=== PATIENT | male | born 1980 | race African-American/Black ===

== ENCOUNTER 2021-05-20 21:01 | Emergency (ER) | payer SELFPAY ==
[~2021-05-20] VITALS: Ht 175.3 cm; Wt 68.2 kg
[2021-05-20] MEDS ORDERED: KETOROLAC 60 MG/2 ML VIAL. IM ONE (21:15)
--- NOTE | 2021-05-20 21:22 | PHYS DOC ---
Past History Past Medical History: No Pertinent History Past Medical History Patient reports a history of chronic cervicalgia and "I had neck surgery" in [place] he says Additional Past Surgical Histo: Patient reports a history of cervical disc surgery in [place] but is dave Alcohol Use: Occasionally Drug Use: None General Adult EDM: Chief Complaint: EtOH use, fell down stairs HPI: HPI: 40-year-old male says he was with his uncle and they were drinking alcohol, he says that he lost his footing and fell down some stairs, unclear of how many stairs he fell down, the patient is intoxicated and unable to provide a detailed history although he says he hit his neck, head, back, hip and right ankle. Denies any loss of conscious, denies any nausea, vomiting, no chest or abdominal pain, denies any blurred vision or vision loss, no focal numbness weakness/tingling of face, arms or legs. No loss of bowel or bladder control. He denies having any medical history and did not take any prescription medications Review of Systems: Review of Systems: Constitutional: Denies fever or chills Eyes: Denies change in visual acuity HENT: Denies nasal congestion or sore throat Respiratory: Denies cough or shortness of breath Cardiovascular: Denies chest pain or edema GI: Denies abdominal pain, nausea, vomiting, bloody stools or diarrhea : Denies dysuria Musculoskeletal: Denies back pain or joint pain Integument: Denies rash Neurologic: Denies headache, focal weakness or sensory changes Endocrine: Denies polyuria or polydipsia Lymphatic: Denies swollen glands Psychiatric: Denies depression or anxiety Current Medications: Current Meds: Current Medications Medications (Trade) Dose Ordered Sig/Waqar Start Time Stop Time Status Last Admin Dose Admin Ketorolac Tromethamine (Toradol Im) 30 mg 1X ONCE 05/20/21 21:15 05/20/21 21:16 UNV Allergies: Allergies: Allergies Coded Allergies Type Severity Reaction Last Updated Verified No Known Drug Allergies 05/20/21 No Physical Exam: PE: Gen-well appearing, no acute distress Head: Normocephalic/Atraumatic ENT: atraumatic, PERRLA, EOMI, oropharynx clear Neck: s there is a cervical collar in place, there is no midline cervical spinal tenderness, no JVD, no external signs of trauma Lungs: no distress, speaks in full sentences, Clear to auscultation bilaterally CV: reg rate, rhythm, no murmus/rubs/gallops, peripheral pulses equal in all extremities Abdomen: soft/nontender, no guarding/rebound tenderness, no rigidity, non di stended, normoactive bowel sounds Musculoskeletal: full ROM/strength in all extremities, atraumatic, no swelling Back: There is mild paravertebral soft tissue tenderness in the right lumbar area, no midline T, L, S spinal tenderness normal external appearance, no external signs of trauma, Skin: intact, no rashes Lymph: no gross PATSY Neuro: Patient is intoxicated however he is alert and oriented x3, there are no acute focal neurologic deficits or abnormal movements EKG: EKG: [] Twelve-lead EKG was performed at 10:18 PM, normal sinus rhythm, rate is 82, normal and nonischemic appearing EKG with normal axis and intervals Radiology/Procedures: Radiology/Procedures: [] Heart Score: C/O Chest Pain: No Risk Factors: Risk Factors: DM, Current or recent (<one month) smoker, HTN, HLP, family history of CAD, obesity. Risk Scores: Score 0 - 3: 2.5% MACE over next 6 weeks - Discharge Home Score 4 - 6: 20.3% MACE over next 6 weeks - Admit for Clinical Observation Score 7 - 10: 72.7% MACE over next 6 weeks - Early Invasive Strategies Course & Med Decision Making: Course & Med Decision Making Pertinent Labs and Imaging studies reviewed. (See chart for details) [] 40-year-old otherwise healthy male presents to the emergency department complaining of head, neck, back, right hip and right ankle pain after a fall in the setting of alcohol use, the patient is in a cervical collar on arrival, will maintain cervical spine immobilization until he can be cleared clinically, as for the other somatic plaints will also ambulate, will treat his pain, closely monitor, reevaluate exam this patient is the work-up to determine the best course of action is a data becomes available Reevaluation at 11:30 PM patient is feeling better, CTs were negative for any acute fracture did comment about a possible T2 endplate deformity patient has prior history of fracture and has no tenderness in that area, I did clear his C- spine clinically and he has full range of motion and strength that any pain or n eurologic symptoms, I believe he stable for discharge at this time Patient was seen in the ED for mechanical fall complaining of multiple somatic complaints, neck pain, back pain, hip pain and the imaging was negative, the patient clinically improved, there is no apparent evidence of any emergency medical pathology at this time, patient was advised follow-up with their primary care provider /physician in the next 24-48 hours and to return to the ED before then if any new or worsening / concerning symptoms had developed. All questions and concerns were addressed at time of disposition Dragon Disclaimer: Dragon Disclaimer: This electronic medical record was generated, in whole or in part, using a voice recognition dictation system. Departure Departure: Impression: Primary Impression: Fall down stairs Qualified Codes: W10.8XXA - Fall (on) (from) other stairs and steps, initial encounter Additional Impressions: Neck strain Qualified Codes: S16.1XXA - Strain of muscle, fascia and tendon at neck level, initial encounter Closed head injury Qualified Codes: S09.90XA - Unspecified injury of head, initial encounter Disposition: HOME / SELF CARE / HOMELESS Condition: IMPROVED Referrals: PCP,HUSSEIN (PCP) LOS GUTIERREZ MD Patient Instructions: Cervical Sprain, Head Injury, Adult Additional Instructions: The good news is your scans were okay, nothing broken, please be very careful when drinking alcohol do not drink to excess, want you to follow-up with a primary care doctor in the next 48 hours and I am referring you to Dr. Gutierrez, return to the emergency room before then if any new or worsening/concerning symptoms develop Scripts Naproxen Sodium (ANAPROX DS) 550 Mg Tablet 550 MG PO BID PRN for PAIN, #20 TAB Prov: JAIMEE MEJIA MD 05/20/21 JAIMEE MEJIA MD May 20, 2021 21:22
[2021-05-20 22:35] LABS: BASO % 1 % (0-3); EOS # 0.1 x10^3/uL (0.0-0.7); EOS % 2 % (0-3); HEMATOCRIT 39.3 % (39.0-53.0); HEMOGLOBIN 12.9 g/dL (13.0-17.5); LYMPH # 3.1 x10^3/uL (1.0-4.8); LYMPH % 43 % (24-48); MEAN CORPUSCULAR HEMOGLOBIN 33 pg (25-35); MEAN CORPUSCULAR HGB CONC 33 g/dL (31-37); MEAN CORPUSCULAR VOLUME 100 fL (79-100); MONO # 0.7 x10^3/uL (0.0-1.1); MONO % 10 % (0-9); NEUT # 3.3 x10^3uL (1.8-7.7); NEUT % 45 % (31-73); PLATELET COUNT 315 x10^3/uL (140-400); RED BLOOD COUNT 3.93 x10^6/uL (4.30-5.70); WHITE BLOOD COUNT 7.3 x10^3/uL (4.0-11.0)
[2021-05-20 22:45] LABS: CALCIUM 8.3 mg/dL (8.5-10.1); CREATININE 0.9 mg/dL (0.7-1.3); GFR 94.4; POTASSIUM 3.9 mmol/L (3.5-5.1)
[2021-05-20 22:51] LABS: ALBUMIN 3.1 g/dL (3.4-5.0); ALBUMIN/GLOBULIN RATIO 0.8 (1.0-1.7); TOTAL BILIRUBIN 0.2 mg/dL (0.2-1.0); TOTAL PROTEIN 6.9 g/dL (6.4-8.2)
--- NOTE | 2021-05-20 22:57 | EKG ---
[address] [address] Test Date: 2021-05-20 Test Time: 22:18:27 Pat Name: MAK WYMAN Department: Room: Gender: M Perioperative Assistant: : 1980 Requested By: JAIMEE MEJIA Order Number: [id number] Reading MD: Measurements Intervals [place] Rate: 92 P: 66 RI: 136 QRS: 59 QRSD: 86 T: 52 QT: 350 QTc: 438 Interpretive Statements SINUS RHYTHM NORMAL ECG RI6.02 Compared to ECG 05/20/2021 22:16:36 No significant changes
--- NOTE | 2021-05-20 22:59 | RAD ---
INDICATION: Reason: fell down the stairs / Spl. Instructions: / History: COMPARISON: None. TECHNIQUE: Axial CT images obtained through the head and cervical spine without intravenous contrast. Coronal a nd sagittal reformats processed of cervical spine. One or more of the following individualized dose reduction techniques were utilized for this examinat ion: 1. Automated exposure control; 2. Adjustment of the mA and/or kV according to patient size; 3 . Use of iterative reconstruction technique. FINDINGS: Head: No intracranial hemorrhage. No midline shift. Basal cisterns patents. Ventricles and sulci are within normal limits. No acute osseous abnormality. Orbits and paranasal sinuses unremarkable. Cervical: Anterior spinal fusion changes with plate and screws at C6-7. There is some degenerative changes of the cervical spine with disc protrusions as well as osteophyte formation at the vertebral body endplates with uncovertebral and facet hypertrophy. This contributes to central canal and neural foraminal stenosis. No evidence of dislocation. A definite acute fracture line is not seen. Mild bowing of the superior endplate of T2 vertebral body. There is some cystic changes at the partially visualized lung apices.. IMPRESSION: * No acute intracranial hemorrhage. * No acute fracture or dislocation of the cervical spine. * Degenerative changes of the cervical spine with disc protrusions and osteophyte formation as well as uncovertebral and facet hypertrophy with associated central canal and neural foraminal stenosis. T here is also postoperative changes status post anterior fusion at C6-7. * Cystic changes at the lung apices. * Mild superior endplate loss of height at T2 of unknown age. Electronically signed by: Yoel Landa MD (05/20/2021 10:56 PM) [id number]
--- NOTE | 2021-05-20 23:04 | RAD ---
XR SHOULDER_RIGHT 2+ VIEWS History: Reason: fell / Spl. Instructions: / History: . Pain Technique: 3 views right shoulder Comparison: None. Findings: Normal alignment. No fracture. Impression: 1. No acute osseous abnormality. Electronically signed by: Rafiq Razo DO (05/20/2021 11:02 PM) [facility]
--- NOTE | 2021-05-20 23:05 | RAD ---
XR LUMBAR SPINE 2-3V History: Reason: fell / Spl. Instructions: / History: . Pain Technique: 3 views lumbar spine. Comparison: None. Findings: Normal vertebral body height and alignment. No acute fracture. Mild degenerative disc changes most pr ominent L5-S1. Mild facet arthropathy. Impression: 1. No acute osseous abnormality. Electronically signed by: Rafiq Razo DO (05/20/2021 11:03 PM) [facility]
--- NOTE | 2021-05-20 23:06 | RAD ---
XR EXAM OF ANKLE_RIGHT 3VIEWS History: Reason: fell / Spl. Instructions: / History: . Pain Technique: 3 views right ankle Comparison: None. Findings: No dislocation. Symmetric ankle mortise. No acute fracture. Impression: 1. No acute osseous abnormality. Electronically signed by: Rafiq Razo DO (05/20/2021 11:04 PM) [facility]
--- NOTE | 2021-05-20 23:08 | RAD ---
XR BILATERAL HIP (WITH OR WITHOUT PELVIS) 2 VIEWS_RIGHT History: Reason: fell / Spl. Instructions: / History: . Pain Technique: AP view the pelvis and 2 additional views of the right hip. Comparison: None. Findings: No dislocation. No acute fracture. Slight prominence of the femoral head/neck junction, can be seen w ith femoral acetabular impingement morphology. Impression: 1. No acute osseous abnormality. Electronically signed by: Rafiq Razo DO (05/20/2021 11:06 PM) [facility]
[2021-05-20 23:26] LABS: BARBITURATES NEG (NEG); BENZODIAZEPINES NEG (NEG); CANNABINOIDS POS (NEG); COCAINE NEG (NEG); METHADONE NEG (NEG); OPIATES NEG (NEG); PHENCYCLIDINE POS (NEG)
[2021-05-20 23:34] LABS: AMPHETAMINE/METHAMPHETAMINE NEG (NEG)
[2021-05-20] MEDS ORDERED: NAPR-682 PO (23:56)
[2021-05-21 00:12] VITALS: BP 142/80
== END 2021-05-21 00:11 | disposition home or self-care (01) ==
LOC: ER 21:01
DX: S16.1XXA Strain of muscle, fascia and tendon at neck level, initial encounter (principal); S09.90XA Unspecified injury of head, initial encounter; M25.551 Pain in right hip; M25.571 Pain in right ankle and joints of right foot; M25.511 Pain in right shoulder; F10.129 Alcohol abuse with intoxication, unspecified; Y90.9 Presence of alcohol in blood, level not specified; W10.8XXA Fall (on) (from) other stairs and steps, initial encounter; Y93.89 Activity, other specified; Y92.89 Other specified places as the place of occurrence of the external cause; Y99.8 Other external cause status
CPT/HCPCS: 36415; 70450; 72100; 72125; 73030; 73502; 73610; 80053; 80307; 85025; 93005; 96372; 99285; G0480; J1885

== ENCOUNTER 2021-10-02 16:36 | Emergency (ER) | payer MEDICAID ==
[~2021-10-02] VITALS: Ht 175.3 cm; Wt 68.2 kg
[~2021-10-02 16:36] MED LIST: NAPR-682 PO
[2021-10-02 17:00] VITALS: BP 163/90
[2021-10-02] MEDS ORDERED: DICYCLOMINE 20 MG/2 ML VIAL. IM ONE (18:00)
--- NOTE | 2021-10-02 18:05 | PHYS DOC ---
Past History Past Medical History: No Pertinent History Additional Past Medical Histor: CERVICAL SPINE STENOSIS (ELEAZAR MAYO APRN) Past Surgical History: Other Additional Past Surgical Histo: Patient reports a history of cervical disc surgery in [place] but is dave (ELEAZAR MAYO APRN) Alcohol Use: Occasionally Drug Use: None (ELEAZAR MAYO APRN) General Adult EDM: Chief Complaint: ABDOMINAL PAIN HPI: HPI: Patient is a 41-year-old male who presents with alcohol intoxication and abdominal pain. Patient was seen this morning at [facility] and diagnosed with C. difficile. Patient states that he has had diarrhea for 20 days. Patient has been placed on vancomycin and started taking today. Patient is reporting abdominal cramping. Denies taking anything home for pain. Patient is alert and oriented x4. Patient denies drug use. Patient denies any other health problems. (ELEAZAR MAYO APRN) Review of Systems: Review of Systems: ROS At least 10 ROS systems have been reviewed and are negative except as documented in the HPI. General: Negative except as outlined in HPI above. Skin: Negative except as outlined in HPI above. HEENT: Negative except as outlined in HPI above. Neck: Negative except as outlined in HPI above. Respiratory: Negative except as outlined in HPI above.. Cardiovascular: Negative except as outlined in HPI above. Abdomen: Negative except as outlined in HPI above. : Negative except as outlined in HPI above. Back/MSK: Negative except as outlined in HPI above. Neuro: Negative except as outlined in HPI above. Psych: Negative except as outlined in HPI above. (ELEAZAR MAYO APRN) Allergies: Allergies: Allergies Coded Allergies Type Severity Reaction Last Updated Verified No Known Drug Allergies 05/20/21 No (ELEAZAR MAYO APRN) Physical Exam: PE: Constitutional: Well developed, well nourished, no acute distress, non-toxic appearance. [] HENT: Normocephalic, atraumatic, bilateral external ears normal, oropharynx moist, no oral exudates, nose normal. [] Eyes: PERRLA, EOMI, conjunctiva normal, no discharge. [] Neck: Normal range of motion, no tenderness, supple, no stridor. [] Cardiovascular:Heart rate regular rhythm, no murmur [] Lungs & Thorax: Bilateral breath sounds clear to auscultation [] Abdomen: Bowel sounds normal, soft, no tenderness, no masses, no pulsatile masses. [] Skin: Warm, dry, no erythema, no rash. [] Back: No tenderness, no CVA tenderness. [] Extremities: No tenderness, no cyanosis, no clubbing, ROM intact, no edema. [] Neurologic: Alert and oriented X 3, normal motor function, normal sensory function, no focal deficits noted. [] Psychologic: Affect normal, judgement normal, mood normal. [] (ELEAZAR MAYO APRN) Current Patient Data: Vital Signs: Vital Signs Date Time Temp Pulse Resp B/P (MAP) Pulse Ox O2 Delivery O2 Flow Rate FiO2 10/02/21 17:00 98.1 75 18 163/90 (114) 100 (ELEAZAR MAYO APRN) EKG: EKG: [] (ELEAZAR MAYO APRN) Radiology/Procedures: Radiology/Procedures: [] (ELEAZAR MAYO APRN) Heart Score: C/O Chest Pain: No Risk Factors: Risk Factors: DM, Current or recent (<one month) smoker, HTN, HLP, family history of CAD, obesity. Risk Scores: Score 0 - 3: 2.5% MACE over next 6 weeks - Discharge Home Score 4 - 6: 20.3% MACE over next 6 weeks - Admit for Clinical Observation Score 7 - 10: 72.7% MACE over next 6 weeks - Early Invasive Strategies (ELEAZAR MAYO APRN) Course & Med Decision Making: Course & Med Decision Making Pertinent Labs and Imaging studies reviewed. (See chart for details) [] 41-year-old male presents with alcohol intoxication abdominal pain. Patient was diagnosed today at [facility] with C. difficile. Patient's been taking vancomycin since this morning. Patient given Bentyl for pain. Discussed with patient he is going to have pain and cramping with C. difficile. Patient does not appear to be in any distress. Patient is alert and oriented x4. Advised patient to call his PCP and make a follow-up appointment. Patient should continue taking antibiotic as directed. Discussed return precautions with patient patient verbalizes understanding of discharge instructions. Patient is hemodynamically stable upon disposition (ELEAZAR MAYO APRN) Dragon Disclaimer: Dragon Disclaimer: This electronic medical record was generated, in whole or in part, using a voice recognition dictation system. (ELEAZAR MAYO APRN) Departure Departure: Impression: Primary Impression: Abdominal pain Qualified Codes: R10.30 - Lower abdominal pain, unspecified Disposition: HOME / SELF CARE / HOMELESS Condition: STABLE Referrals: PCP,NO (PCP) Patient Instructions: Abdominal Pain Additional Instructions: You were seen in the emergency room for abdominal pain. You were diagnosed this morning with C. difficile from [facility] and started on vancomycin. You were going to have abdominal cramping with this infection. Continue taking your antibiotics as directed. Take ibuprofen and Tylenol at home for discomfort. Follow-up with your PCP for further management. Return to the emergency room with worsening symptoms or concerns. EMERGENCY DEPARTMENT GENERAL DISCHARGE INSTRUCTIONS Thank you for coming to [facility] (ED) today and trusting us with you care. We trust that you had a positivie experience in our Emergency Department. If you wish to speak to the department management, you may call the director at [phone]. YOUR FOLLOW UP INSTRUCTIONS ARE FOLLOWS: 1. Do you have a private Doctor? If you do not have a private doctor, please ask for a resource list of physicians or clinics that may be able to assist you with follow up care. 2. The Emergency Physician has interpreted your x-rays. The X-Ray specialist will also review them. If there is a change in the findings, you will be notified in 48 hours when at all possible. 3. A lab test or culture has been done, your results will be reviewed and you will be notified if you need a change in treatment. ADDITIONAL INSTRUCTIONS AND INFORMATION: 1. Your care today has been supervised by a physician who is specially trained in emergency care. Many problems require more than one evaluation for a complete diagnosis and treatment. We recommend that you schedule your follow up appointment as recommended to ensure complete treatment of you illness or injury. If you are unable to obtain follow up care and continue to have a problem, or if your condition worsens, we recommend that you return to the ED. 2. We are not able to safely determine your condition over the phone nor are we able to give sound medical advice over the phone. For these safety reasons, if you call for medical advice we will ask you to come to the ED for further evaluation. 3. If you have any questions regarding these discharge instructions please call the ED at [phone]. SAFETY INFORMATION: In the interest of safety, wellness, and injury prevention; we encourage you to wear your sealbelt, if you smoke; quite smoking, and we encourage family to use a protective helmet for bicycling and other sporting events that present an increased risk for head injury. IF YOUR SYMPTOMS WORSEN OR NEW SYMPTOMS DEVELOP, OR YOU HAVE CONCERNS ABOUT YOUR CONDITION; OR IF YOUR CONDITION WORSENS WHILE YOU ARE WAITING FOR YOUR FOLLOW UP APPOINTMENT; EITHER CONTACT YOUR PRIMARY CARE DOCTOR, THE PHYSICIAN WHOSE NAME AND NUMBER YOU WERE GIVEN, OR RETURN TO THE ED IMMEDIATELY. Attending Signature Attending Signature I have participated in the care of this patient and I have reviewed and agree with all pertinent clinical information above including history, exam, and recommendations. (CARRIE CANNON MD) ELEAZAR MAYO APRN Oct 02, 2021 18:05 CARRIE CANNON MD Oct 04, 2021 18:29
[2021-10-02 18:15] LABS: BARBITURATES NEG (NEG); BENZODIAZEPINES NEG (NEG); CANNABINOIDS POS (NEG); COCAINE NEG (NEG); METHADONE NEG (NEG); OPIATES NEG (NEG); PHENCYCLIDINE POS (NEG)
[2021-10-02] MEDS ORDERED: DICYCLOMINE HCL 20 MG TABLET PO ONE (18:15)
[2021-10-02 18:17] LABS: BACTERIA,URINE 0 /HPF (0-FEW); BILIRUBIN,URINE NEG (NEG); CLARITY,URINE CLEAR; COLOR,URINE YELLOW; GLUCOSE,URINE NEG (NEG); NITRITE,URINE NEG (NEG); RBC,URINE 0 /HPF (0-2); UROBILINOGEN,URINE 0.2 mg/dL (0.2 mg/dL); WBC,URINE OCC /HPF (0-4)
[2021-10-02 18:18] LABS: AMPHETAMINE/METHAMPHETAMINE NEG (NEG)
== END 2021-10-02 18:16 | disposition home or self-care (01) ==
LOC: ER 16:36
DX: R10.30 Lower abdominal pain, unspecified (principal); F10.129 Alcohol abuse with intoxication, unspecified; Y90.8 Blood alcohol level of 240 mg/100 ml or more
CPT/HCPCS: 36415; 80307; 81001; 99283-25

== ENCOUNTER 2021-10-02 22:05 | Emergency (ER) | payer MEDICAID ==
[~2021-10-02] VITALS: Ht 175.3 cm; Wt 68.2 kg
--- NOTE | 2021-10-02 22:11 | PHYS DOC ---
Past History Past Medical History: No Pertinent History, Alcoholism Additional Past Medical Histor: CERVICAL SPINE STENOSIS Past Medical History History of C. difficile Past Surgical History: Other Additional Past Surgical Histo: Patient reports a history of cervical disc surgery in [place] but is dave Alcohol Use: Occasionally Drug Use: None General Adult HPI: HPI: ".. I don't give a fuck... I just fucking like to be drunk.. ". " Fuck it ... Fuck it.. "..".. Fucking Uncle..." " I would like ... to fuck someone... ".. "Fucking get me something fucking to eat..." " I eat pussy too"... Patient is a 41 year old male who presents with hx of alcohol intoxication. Pt. just discharge from ED earlier in shift. Pt. was at his Uncle's home became inappropriate and uncle called the police. Police arrived to remove him from home. Police then had Ambulance to transfer him back to ED for his alcohol intoxication. Pt. recently discharged from [facility] this morning with a diagnosis of alcohol intoxication and C. difficile. Since that time patient has continued to drink alcohol. Patient seen earlier this shift for alcohol intoxication at that time he was very inappropriate with female staff members. Pt. currently has no physical complaints except that he is hungry. Patient continued to drink alcohol since earlier discharge approximately 2 hrs. ago. . Review of Systems: Review of Systems: Constitutional: Denies fever or chills Eyes: Denies change in visual acuity HENT: Denies nasal congestion or sore throat Respiratory: Denies cough or shortness of breath Cardiovascular: Denies chest pain or edema GI: Denies abdominal pain, nausea, vomiting, bloody stools or diarrhea : Denies dysuria Musculoskeletal: Denies back pain or joint pain Integument: Denies rash Neurologic: Denies headache, focal weakness or sensory changes Endocrine: Denies polyuria or polydipsia Lymphatic: Denies swollen glands Psychiatric: Denies depression or anxiety Family History: Family History: Noncontributory Current Medications: Current Meds: See nursing for home meds Allergies: Allergies: Allergies Coded Allergies Type Severity Reaction Last Updated Verified No Known Drug Allergies 05/20/21 No Physical Exam: PE: Constitutional: no acute distress, intoxicated in appearance. [] HENT: Normocephalic, atraumatic, bilateral external ears normal, oropharynx moist, no oral exudates, nose normal. [] Eyes: PERRLA, EOMI, conjunctiva normal, no discharge. [] Neck: Normal range of motion, no tenderness, supple, no stridor. [] Cardiovascular:Heart rate regular rhythm, no murmur [] Lungs & Thorax: Bilateral breath sounds equal apex with scattered wheezes auscultation [] Abdomen: Bowel sounds normal, soft, no tenderness, no masses, no pulsatile masses. [] Skin: Warm, dry, no erythema, no rash. [] Back: No tenderness, no CVA tenderness. [] Extremities: No tenderness, no cyanosis, no clubbing, ROM intact, no edema. [] Crutches Neurologic: Alert and oriented X 3, normal motor function, normal sensory function, no focal deficits noted. [] Psychologic: Affect argumentative, rude, and generally inappropriate,, judgement impaired, mood normal. [] Pt. at one point got up , urinated in trash can and defecated in middle of floor in room 3, . The pt. then wiped his butt on the sheet. EKG: EKG: [] Radiology/Procedures: Radiology/Procedures: [] Heart Score: C/O Chest Pain: N/A Risk Factors: Risk Factors: DM, Current or recent (<one month) smoker, HTN, HLP, family history of CAD, obesity. Risk Scores: Score 0 - 3: 2.5% MACE over next 6 weeks - Discharge Home Score 4 - 6: 20.3% MACE over next 6 weeks - Admit for Clinical Observation Score 7 - 10: 72.7% MACE over next 6 weeks - Early Invasive Strategies Course & Med Decision Making: Course & Med Decision Making Pertinent Labs and Imaging studies reviewed. (See chart for details) Patient avoid further alcohol intake. Follow-up primary care. Return if any concerns. Pt alcohol intoxication resolved and dressed himself . Pt. 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 Stated he was going to get something to eat at [place]. Impression: 1. Alcohol intoxication 2. Hx. C-dif 3. Hx. Cervical Spine Stenosis 4. Inappropriate behavior-with femaled nursing staff [] Jennifer Disclaimer: Jennifer Disclaimer: This electronic medical record was generated, in whole or in part, using a voice recognition dictation system. Departure Departure: Referrals: PCP,NO (PCP) Dragon Disclaimer This chart was dictated in whole or in part using Voice Recognition software in a busy, high-work load, and often noisy Emergency Department environment. It may contain unintended and wholly unrecognized errors or omissions. Dragon Disclaimer This chart was dictated in whole or in part using Voice Recognition software in a busy, high-work load, and often noisy Emergency Department environment. It may contain unintended and wholly unrecognized errors or omissions. CARRIE CANNON MD Oct 02, 2021 22:11
[2021-10-03 04:15] VITALS: BP 123/72
== END 2021-10-03 04:30 | disposition home or self-care (01) ==
LOC: ER 22:05
DX: F10.129 Alcohol abuse with intoxication, unspecified (principal); M48.02 Spinal stenosis, cervical region; Y90.8 Blood alcohol level of 240 mg/100 ml or more
CPT/HCPCS: 99283-25

== ENCOUNTER 2021-10-26 19:46 | Emergency (ER) | payer MEDICAID ==
[~2021-10-26] VITALS: Ht 175.3 cm; Wt 68.2 kg
--- NOTE | 2021-10-26 19:53 | PHYS DOC ---
Past History Past Medical History: No Pertinent History, Alcoholism Additional Past Medical Histor: CERVICAL SPINE STENOSIS Past Surgical History: Other Additional Past Surgical Histo: Patient reports a history of cervical disc surgery in [place] but is dave Alcohol Use: Heavy Drug Use: None General Adult EDM: Chief Complaint: ALTERED MENTAL STATUS HPI: HPI: ".. Fuck off... I am fucking drunk... " I like being drunk..."." Let me fucking sleep.,.. "." I just like being fucking high".. ." You fucking can get me something fucking to eat..." Patient is a 41 year old male who presents with above hx of altered mental status after heavy alcohol use. Patient seen previously with similar type of presentation. On 10/02/2021. Patient was brought in for altered mental status after drinking heavily. Patient currently appears to be very intoxicated. Majority the time refusing to answer questions. Slurred speech. Pt i nappropriate with female staff. Refusing to give urine. Refusing to allow chest x-ray or CT head . Exposing his penis to all female staff. Telling female staff he would " Like lick your pussy...". Very inappropriate with staff. Refusing to wear mask. Walks out of room nake several times.. Review of Systems: Review of Systems: Constitutional: Denies fever or chills Eyes: Denies change in visual acuity HENT: Denies nasal congestion or sore throat Respiratory: Denies cough or shortness of breath Cardiovascular: Denies chest pain or edema GI: Denies abdominal pain, nausea, vomiting, bloody stools or diarrhea : Denies dysuria Musculoskeletal: Denies back pain or joint pain Integument: Denies rash Neurologic: Denies headache, focal weakness or sensory changes Endocrine: Denies polyuria or polydipsia Lymphatic: Denies swollen glands Psychiatric: Denies depression or anxiety Family History: Family History: Noncontributory to presentation Current Medications: Current Meds: See nursing for home meds Allergies: Allergies: Allergies Coded Allergies Type Severity Reaction Last Updated Verified No Known Drug Allergies 05/20/21 No Physical Exam: PE: Constitutional: no acute distress, very intoxicated and appearance. [] HENT: Normocephalic, atraumatic, bilateral external ears normal, oropharynx moist, no oral exudates, nose normal. [] Eyes: PERRLA, EOMI, conjunctiva injected, no discharge. [] Neck: Normal range of motion, no tenderness, supple, no stridor. Surgical scar Cardiovascular:Heart rate regular rhythm, no murmur [] Lungs & Thorax: Bilateral breath sounds equal apex with scattered wheezes on auscultation [] Abdomen: Bowel sounds decreased, soft, no tenderness, no masses, no pulsatile masses. [] Skin: Warm, dry, no erythema, no rash. [] Back: No tenderness, no CVA tenderness. [] Extremities: No tenderness, no cyanosis, no clubbing, ROM intact, no edema. [] Neurologic: Alert and oriented X 3, moves extremities with noxious stimuli, cross reacts,, no focal deficits noted. [] Psychologic: Affect flat, judgement impaired, mood normal. [] EKG: EKG: My interpretation EKG shows a sinus rhythm at 72 bpm. No acute morphology. Some bimodal P waves in the left ventricle leads. Time of EKG equals 2017 hrs. [] Radiology/Procedures: Radiology/Procedures: [][address] [address] IMAGING REPORT Signed PATIENT: MAK WYMAN ACCOUNT: [id number] : 1980 LOCATION: ER AGE: 41 SEX: M EXAM STATUS: REG ER ORD. PHYSICIAN: CARRIE CANNON MD REASON: altered ms, confusion, agitation PROCEDURE: CT HEAD AND CERVICAL SPINE WO CT HEAD AND C-SPINE WO History: Reason: altered ms, confusion, agitation / Spl. Instructions: / History: Comparison: May 20, 2021 Technique: Noncontrast CT imaging was performed of the head and cervical spine. Coronal and sagittal reconstructions were performed. Exposure: One or more of the following individualized dose reduction techniques were utilized for this examination: 1. Automated exposure control 2. Adjustment of the mA and/or kV according to patient size 3. Use of iterative reconstruction technique. Findings: Head CT: No intracranial hemorrhage. No mass effect. No hydrocephalus. Extra- axial spaces are unremarkable. Imaged orbits are unremarkable. Imaged paranasal sinuses and mastoid air cells are clear. No acute calvarial fracture. Cervical spine CT: Straightening of the cervical spine. No acute fracture. Anterior stabilization and interbody fusion C6-C7. Chronic mild T2 and T3 superior endplate compression deformities. Multilevel cervical degenerative disc changes most prominent C4-C5 and C5-C6. Facet arthropathy. Multilevel mild canal narrowing. Multilevel neuroforaminal narrowing. Mild pulmonary emphysema. Impression: Head CT: 1. No acute intracranial abnormality. Cervical spine CT: 1. No acute fracture or subluxation of the cervical spine. 2. Multilevel cervical spondylosis. 3. Anterior stabilization and interbody fusion C6-C7. Electronically signed by: Rafiq Razo DO (10/26/2021 11:18 PM) [facility] DICTATED AND SIGNED BY: RAFIQ RAZO DO DATE: 10/26/212309 CC: CARRIE CANNON MD; PCP,NO ~MTH0 0 Impressions: [place] [address] IMAGING REPORT Signed PATIENT: MAK WYMAN ACCOUNT: [id number] : 1980 LOCATION: ER AGE: 41 SEX: M EXAM STATUS: REG ER ORD. PHYSICIAN: CARRIE CANNON MD REASON: dyspnea PROCEDURE: CHEST AP ONLY AP chest. HISTORY: Dyspnea AP view was taken of the chest. Lungs are clear. Heart is normal in size. There is no effusion. IMPRESSION: 1. No acute chest disease. Electronically signed by: Rick Wyatt MD (10/26/2021 10:19 PM) [facility] DICTATED AND SIGNED BY: RICK WYATT MD DATE: 10/26/212217 CC: CARRIE CANNON MD; PCP,NO ~MTH0 0 Heart Score: C/O Chest Pain: N/A HEART Score for Chest Pain: HEART Score for Chest Pain Response (Comments) Value History Slighlty/Non-Suspicious 0 ECG Normal 0 Age < 45 0 Risk Factors No Risk Factors 0 Troponin < Normal Limit 0 Total 0 Risk Factors: Risk Factors: DM, Current or recent (<one month) smoker, HTN, HLP, family history of CAD, obesity. Risk Scores: Score 0 - 3: 2.5% MACE over next 6 weeks - Discharge Home Score 4 - 6: 20.3% MACE over next 6 weeks - Admit for Clinical Observation Score 7 - 10: 72.7% MACE over next 6 weeks - Early Invasive Strategies Course & Med Decision Making: Course & Med Decision Making Pertinent Labs and Imaging studies reviewed. (See chart for details) Patient encouraged to avoid further alcohol use today patient encouraged to avoid polysubstance abuse including PCP. Patient encouraged to follow with [facility] [phone]. Patient trialing encouraged drug rehab program. Patient encouraged to avoid his inappropriate behavior and speech to female staff. Impression: 1. History of altered mental status 2. Alcohol abuse= alcohol today was 196 3. Drug Screen Positve for Ketamine/PCP [] Dragon Disclaimer: Dragon Disclaimer: This electronic medical record was generated, in whole or in part, using a voice recognition dictation system. Departure Departure: Referrals: PCP,NO (PCP) Dragon Disclaimer This chart was dictated in whole or in part using Voice Recognition software in a busy, high-work load, and often noisy Emergency Department environment. It may contain unintended and wholly unrecognized errors or omissions. CARRIE CANNON MD Oct 26, 2021 19:53
--- NOTE | 2021-10-26 20:26 | EKG ---
[address] [address] Test Date: 2021-10-26 Test Time: 20:17:37 Pat Name: MAK WYMAN Department: Room: Gender: M Fly [employer]: : 1980 Requested By: CARRIE CANNON Order Number: [id number] Reading MD: Zia Kearns Measurements Intervals [place] Rate: 72 P: 69 LA: 146 QRS: 57 QRSD: 90 T: 31 QT: 422 QTc: 464 Interpretive Statements SINUS RHYTHM LEFT ATRIAL ABNORMALITY Electronically Signed On 10-31-2021 17:03:23 [employer] by Zia Kearns
[2021-10-26] MEDS: IV RINGERS SOLUTION,LACTATED 1,000 ML IV SCH (20:30)
[2021-10-26 20:44] LABS: BASO % 0 % (0-3); EOS # 0.1 x10^3/uL (0.0-0.7); EOS % 1 % (0-3); HEMATOCRIT 39.7 % (39.0-53.0); HEMOGLOBIN 13.5 g/dL (13.0-17.5); LYMPH # 2.9 x10^3/uL (1.0-4.8); LYMPH % 40 % (24-48); MEAN CORPUSCULAR HEMOGLOBIN 34 pg (25-35); MEAN CORPUSCULAR HGB CONC 34 g/dL (31-37); MEAN CORPUSCULAR VOLUME 100 fL (79-100); MONO # 0.5 x10^3/uL (0.0-1.1); MONO % 8 % (0-9); NEUT # 3.6 x10^3uL (1.8-7.7); NEUT % 51 % (31-73); PLATELET COUNT 318 x10^3/uL (140-400); RED BLOOD COUNT 3.98 x10^6/uL (4.30-5.70); WHITE BLOOD COUNT 7.1 x10^3/uL (4.0-11.0)
[2021-10-26 20:45] VITALS: BP 119/63
[2021-10-26 20:54] LABS: CALCIUM 8.6 mg/dL (8.5-10.1); CREATININE 0.9 mg/dL (0.7-1.3); GFR 113.7; POTASSIUM 3.6 mmol/L (3.5-5.1)
[2021-10-26 21:00] LABS: ALBUMIN 3.5 g/dL (3.4-5.0); DIRECT BILIRUBIN 0.1 mg/dL (0.0-0.2); TOTAL BILIRUBIN 0.3 mg/dL (0.2-1.0); TOTAL PROTEIN 7.1 g/dL (6.4-8.2)
[2021-10-26 21:02] LABS: BARBITURATES NEG (NEG); BENZODIAZEPINES NEG (NEG); CANNABINOIDS NEG (NEG); COCAINE NEG (NEG); METHADONE NEG (NEG); OPIATES NEG (NEG); PHENCYCLIDINE POS (NEG)
[2021-10-26 21:09] LABS: AMPHETAMINE/METHAMPHETAMINE NEG (NEG)
[2021-10-26 21:20] LABS: INFLUENZA A PATIENT NEGATIVE (NEGATIVE); INFLUENZA B PATIENT NEGATIVE (NEGATIVE)
[2021-10-26 21:32] LABS: BACTERIA,URINE 0 /HPF (0-FEW); BILIRUBIN,URINE NEG (NEG); CLARITY,URINE CLEAR; COLOR,URINE COLORLESS; GLUCOSE,URINE NEG (NEG); NITRITE,URINE NEG (NEG); RBC,URINE RARE /HPF (0-2); UROBILINOGEN,URINE 0.2 mg/dL (0.2 mg/dL); WBC,URINE 0 /HPF (0-4)
--- NOTE | 2021-10-26 22:21 | RAD ---
AP chest. HISTORY: Dyspnea AP view was taken of the chest. Lungs are clear. Heart is normal in size. There is no effusion. IMPRESSION: 1. No acute chest disease. Electronically signed by: Rick Wyatt MD (10/26/2021 10:19 PM) [facility]
--- NOTE | 2021-10-26 23:20 | RAD ---
CT HEAD AND C-SPINE WO History: Reason: altered ms, confusion, agitation / Spl. Instructions: / History: Comparison: May 20, 2021 Technique: Noncontrast CT imaging was performed of the head and cervical spine. Coronal and sagittal reconstructions were performed. Exposure: One or more of the following individualized dose reduction techniques were utilized for thi s examination: 1. Automated exposure control 2. Adjustment of the mA and/or kV according to patient size 3. Use of iterative reconstruction technique. Findings: Head CT: No intracranial hemorrhage. No mass effect. No hydrocephalus. Extra-axial spaces are unrema rkable. Imaged orbits are unremarkable. Imaged paranasal sinuses and mastoid air cells are clear. No acute ca lvarial fracture. Cervical spine CT: Straightening of the cervical spine. No acute fracture. Anterior stabilization and interbody fusion C 6-C7. Chronic mild T2 and T3 superior endplate compression deformities. Multilevel cervical degenerative disc changes most prominent C4-C5 and C5-C6. Facet arthropathy. Mult ilevel mild canal narrowing. Multilevel neuroforaminal narrowing. Mild pulmonary emphysema. Impression: Head CT: 1. No acute intracranial abnormality. Cervical spine CT: 1. No acute fracture or subluxation of the cervical spine. 2. Multilevel cervical spondylosis. 3. Anterior stabilization and interbody fusion C6-C7. Electronically signed by: Rafiq Razo DO (10/26/2021 11:18 PM) [facility]
== END 2021-10-26 23:40 | disposition home or self-care (01) ==
LOC: ER 19:46
DX: F10.20 Alcohol dependence, uncomplicated (principal); F16.90 Hallucinogen use, unspecified, uncomplicated; R41.82 Altered mental status, unspecified; Z20.822 Contact with and (suspected) exposure to COVID-19; Y90.6 Blood alcohol level of 120-199 mg/100 ml
CPT/HCPCS: 70450; 71045; 72125; 80048; 80076; 80307; 81001; 84484; 85025; 87426; 87804; 93005; 96360; 99285; C9803; G0480; J7120; U0003